=== PATIENT | male | born 1990 | race Two or more races ===

== ENCOUNTER 2019-06-06 20:00 | Emergency (ER) | payer OTHER ==
[2019-06-06 20:25] VITALS: BP 117/66
[2019-06-06] MEDS ORDERED: HYDROCODONE/ACETAMINOPHEN 5-325 MG TABLET PO ONE (20:40)
--- NOTE | 2019-06-06 20:42 | ER Document Report ---
HPI - HPI Patient complains to provider of: Right foot injury Time Seen by Provider: 06/06/19 20:35 Onset: This morning Onset/Duration: Worse Quality of pain: Achy Pain Level: 4 Context: Patient states she was running and rolled his right foot. Patient denies any pain in the ankle. Patient does complain of severe pain with weightbearing. Associated Symptoms: Other - Right foot pain Exacerbated by: Standing, Movement, Walking Relieved by: Denies Similar symptoms previously: No Recently seen / treated by doctor: No - ROS ROS below otherwise negative: Yes Systems Reviewed and Negative: Yes All other systems reviewed and negative - GASTROINTESTINAL Gastrointestinal: DENIES: Nausea - MUSCULOSKELETAL Musculoskeletal: REPORTS: Extremity pain, Swelling - DERM Skin Color: Normal Skin Problems: None Past Medical History - General Information source: Patient - Social History Smoking Status: Former Smoker Frequency of alcohol use: Occasional Drug Abuse: None Occupation: Active duty Lives with: Family Family History: Reviewed & Not Pertinent Patient has suicidal ideation: No Patient has homicidal ideation: No - Medical History Medical History: Negative Past Surgical History: Reports: Other - Vasectomy Vertical Provider Document - CONSTITUTIONAL Agree With Documented VS: Yes Exam Limitations: No Limitations General Appearance: WD/WN, No Apparent Distress - HEENT HEENT: Atraumatic, Normocephalic - NECK Neck: Normal Inspection - RESPIRATORY Respiratory: No Respiratory Distress - CARDIOVASCULAR Pulses: Normal: Dorsalis pedis - MUSCULOSKELETAL/EXTREMETIES Musculoskeletal/Extremeties: MAEW, Tender - Right foot tenderness over navicular and cuboid bones, Edema - NEURO Level of Consciousness: Awake, Alert, Appropriate Motor/Sensory: No Motor Deficit - DERM Integumentary: Warm, Dry, No Rash Course - Re-evaluation Re-evalutation: 06/06/19 21:47 Patient without any obvious fracture on x-ray although patient does have soft tissue swelling and point tenderness worrisome for possible occult fracture. Will immobilize and refer to orthopedics for further evaluation at this time. 06/06/19 22:32 Patient's pain medication prescription would not transmit, patient encouraged to have pharmacy staff call to verify that this is indeed an accurate prescription. - Vital Signs Vital signs: Temp Pulse Resp BP Pulse Ox 97.6 F 76 20 117/66 100 06/06/19 20:24 06/06/19 20:24 06/06/19 20:24 06/06/19 20:24 06/06/19 20:24 - Diagnostic Test Radiology reviewed: Image reviewed, Reports reviewed Procedures - Immobilization Right Foot Pre-Proc Neuro Vasc Exam: Normal Immobilizer type: Short Leg Posterior Performed by: PCT Post-Proc Neuro Vasc Exam: Normal Alignment checked and good: Yes Discharge - Discharge Clinical Impression: Right foot sprain Qualifiers: Encounter type: initial encounter Qualified Code(s): S93.601A - Unspecified sprain of right foot, initial encounter Condition: Stable Disposition: HOME, SELF-CARE Instructions: Use of Crutches ([facility]), Ice & Elevation ([facility]), Oral Narcotic Medication ([facility]), Possible Hidden Fracture ([facility]), Sprain ([facility]), Temporary Splint ([facility]) Additional Instructions: Return immediately for any new or worsening symptoms Followup with your primary care provider, call tomorrow to make a followup appointment Follow-up with orthopedics for further evaluation, call tomorrow for an appointment Prescriptions: Naproxen [Naprosyn 250 Nmg Tablet] 1 tab PO BID #14 tablet Hydrocodone/Acetaminophen [[place] 5-325 mg Tablet] 1 tab PO Q6 PRN #15 tablet PRN Reason: Referrals: [facility] [Provider Group] - Follow up as needed [facility] [Provider Group] - Follow up as needed
--- NOTE | 2019-06-06 21:31 | RADIOLOGY REPORT (SQ) ---
3 VIEWS OF RIGHT FOOT EXAM DATE: 06/06/2019 8:40 PM DIRECTOR OF EXHIBITS HISTORY: Foot pain, rolled foot while running. COMPARISON: None. FINDINGS: No acute fracture or dislocation is seen. The joint spaces are preserved. No radiopaque foreign body is identified. Mild soft tissue swelling of the right foot. IMPRESSION: No acute fracture or malalignment.
== END 2019-06-06 23:22 | disposition home or self-care (01) ==
LOC: ER 20:00
DX: S93.601A Unspecified sprain of right foot, initial encounter (principal); X50.0XXA Overexertion from strenuous movement or load, initial encounter
CPT/HCPCS: 99283